=== PATIENT | female | born 1965 | race African-American/Black ===

== ENCOUNTER 2018-06-17 00:07 | Inpatient (IN) | payer MEDICAID ==
[~2018-06-17] VITALS: Ht 167.6 cm; Wt 85.9 kg
[2018-06-17] MEDS ORDERED: NITROGLYCERIN OINT 1GM/INCH UDPKT TD ONE (01:30)
[2018-06-17] MEDS ORDERED: METOPROLOL TARTRATE 50MG TABLET PO ONE (01:30)
[2018-06-17 01:47] LABS: EOSINOPHILS % 3.4 % (0.0-5.0); HEMATOCRIT. 34.4 % (36.0-48.0); HEMOGLOBIN. 11.1 g/dL (12.0-16.0); MEAN CORPUSCULAR HEMOGLOBIN 23.9 pg (28.0-32.0); MEAN CORPUSCULAR VOLUME 73.9 fL (81.0-99.0); MEAN PLATELET VOLUME 7.6 fl (7.4-10.4); MONOCYTES % 10.7 % (2.0-8.0); NEUTROPHILS % 50.9 % (40.0-76.0); PLATELET 363 x1000/uL (130-400); RED BLOOD CELL COUNT 4.65 mill/uL (4.2-5.4); RED CELL DISTRIBUTION WIDTH 18.7 % (11.6-14.6)
[2018-06-17 01:52] LABS: CHLORIDE 109 mEq/L (98-107)
[2018-06-17 01:56] LABS: ETHANOL BLOOD 96 mg/dL
[2018-06-17 08:15] VITALS: BP 163/78
[2018-06-17] MEDS ORDERED: IPRATROPIUM/ALBUTEROL 0.5-3(2.5)MG/3ML NEB INH PRN (08:30)
[2018-06-17] MEDS ORDERED: DOCUSATE SODIUM 100MG CAPSULE PO PRN (08:30)
[2018-06-17] MEDS ORDERED: ONDANSETRON HCL 4MG/2ML INJ IV PRN (08:30)
[2018-06-17] MEDS ORDERED: CLONIDINE 0.1MG TABLET PO PRN (08:30)
[2018-06-17] MEDS ORDERED: DIPHENHYDRAMINE 50MG/ML VIAL IV PRN (08:30)
[2018-06-17] MEDS ORDERED: MAGNESIUM/ALUMINUM HYDROXIDE/SIMETHICONE 30ML UDC PO PRN (08:30)
[2018-06-17] MEDS ORDERED: GUAIFENESIN 200MG/10ML SUGAR FREE UDC PO PRN (08:30)
[2018-06-17] MEDS ORDERED: ACETAMINOPHEN 325MG TABLET PO PRN (08:30)
[2018-06-17] MEDS ORDERED: HYDROCODONE/ACETAMINOPHEN 5/325MG TABLET PO PRN (08:30)
[2018-06-17 09:21] LABS: PHOSPHORUS 2.4 mg/dL (2.5-4.9)
[2018-06-17] MEDS: ENOXAPARIN 40MG/0.4ML SYR SUBCUT SCH (10:33)
[2018-06-17] MEDS: ASPIRIN 81MG EC TABLET PO SCH (10:36)
[2018-06-17 12:42] LABS: HEPATITIS A AB IGM NEGATIVE (NEGATIVE)
[2018-06-17 12:43] LABS: HEPATITIS B SURFACE ANTIGEN NEGATIVE
[2018-06-17 15:54] LABS: CREATINE KINASE 73 IU/L (26-192)
[2018-06-17 15:55] LABS: CREATINE KINASE MB FRACTION < 1.0 ng/mL (0.5-3.6)
[2018-06-17 16:23] LABS: TOTAL IRON BINDING CAPACITY 418 ug/dL (250-450)
[2018-06-17 20:24] VITALS: BP 129/76
[2018-06-17] MEDS: AMLODIPINE 5MG TABLET PO SCH (20:56)
[2018-06-17] MEDS ORDERED: ATORVASTATIN CALCIUM 20MG TABLET PO SCH (21:00)
[2018-06-18 00:10] LABS: CREATINE KINASE 70 IU/L (26-192)
[2018-06-18 00:11] LABS: CREATINE KINASE MB FRACTION < 1.0 ng/mL (0.5-3.6)
[2018-06-18 04:00] VITALS: BP 150/76
[2018-06-18 05:43] LABS: BASOPHILS % 1.4 % (0.0-2.0); EOSINOPHILS % 3.5 % (0.0-5.0); HEMATOCRIT. 34.9 % (36.0-48.0); LYMPHOCYTES % 49.2 % (20.0-50.0); MEAN CORPUSCULAR HEMOGLOBIN 23.8 pg (28.0-32.0); MEAN CORPUSCULAR VOLUME 75.3 fL (81.0-99.0); MEAN PLATELET VOLUME 7.6 fl (7.4-10.4); MONOCYTES % 10.4 % (2.0-8.0); NEUTROPHILS % 35.5 % (40.0-76.0); PLATELET 327 x1000/uL (130-400); RED BLOOD CELL COUNT 4.63 mill/uL (4.2-5.4)
[2018-06-18] MEDS: ASPIRIN 81MG EC TABLET PO SCH (08:24)
[2018-06-18] MEDS: AMLODIPINE 5MG TABLET PO SCH (08:24)
[2018-06-18] MEDS: ENOXAPARIN 40MG/0.4ML SYR SUBCUT SCH (08:25)
[2018-06-18 08:34] LABS: CHLORIDE 105 mEq/L (98-107)
[2018-06-18 08:46] LABS: LDL CHOLESTEROL 106 mg/dL (5-100)
[2018-06-18 08:55] LABS: HDL CHOLESTEROL 53 mg/dL (40-59)
[2018-06-18 12:00] VITALS: BP 157/76
[2018-06-18] MEDS ORDERED: ATOR20TA PO (14:53)
[2018-06-18] MEDS ORDERED: FERR325T23 PO (14:53)
[2018-06-18] MEDS ORDERED: DOCU-138 PO (14:53)
[2018-06-18] MEDS ORDERED: ASPI-1158 PO (14:53)
[2018-06-18] MEDS ORDERED: AMLO5TAB88 PO (14:53)
[2018-06-18 15:59] VITALS: BP 157/76
[2018-06-18] MEDS ORDERED: DOCUSATE SODIUM 100MG CAPSULE PO SCH (17:00)
[2018-06-18] MEDS ORDERED: FERROUS SULFATE 325MG TABLET PO SCH (17:50)
[2018-06-19 04:13] LABS: HIV SCREEN 4G Non Reactive (Non Reactive)
== END 2018-06-18 18:26 | disposition home or self-care (01) | DRG 198 ==
LOC: ER 00:07 → 6WST 04:34 → ENRESERV 07:31
PROVIDERS: ADMIT Internal Medicine; ATTEND Internal Medicine
DX: R07.89 Other chest pain (principal); I25.2 Old myocardial infarction; E83.39 Other disorders of phosphorus metabolism; D25.9 Leiomyoma of uterus, unspecified; D50.9 Iron deficiency anemia, unspecified; F17.200 Nicotine dependence, unspecified, uncomplicated; E78.00 Pure hypercholesterolemia, unspecified; I10 Essential (primary) hypertension; E78.5 Hyperlipidemia, unspecified; Z79.899 Other long term (current) drug therapy
CPT/HCPCS: 36415; 71045; 80061; 80320; 82550; 82553; 82728; 83540; 83550; 83735; 84100; 84443; 84484; 86705; 86709; 86803; 87340; 87389; 93005; 93306; 93970; 97162; 97166; 99285; J1650; G0480

== ENCOUNTER 2018-07-06 09:48 | Emergency (ER) | payer MEDICAID ==
[~2018-07-06] VITALS: Ht 167.6 cm; Wt 92.0 kg
[~2018-07-06 09:48] MED LIST: AMLO5TAB88 PO; ASPI-1158 PO; ATOR20TA PO; DOCU-138 PO; FERR325T23 PO
[2018-07-06] MEDS ORDERED: NITROFURANTOIN 100MG M/M CAPSULE PO ONE (11:15)
[2018-07-06] MEDS ORDERED: PHENAZOPYRIDINE HCL 100MG TABLET PO ONE (11:15)
[2018-07-06 11:42] LABS: CLARITY URINE CLEAR (CLEAR); COLOR URINE YELLOW (YELLOW); KETONES URINE NEGATIVE (NEGATIVE); LEUKOCYTE ESTERASE URINE 1+ (NEGATIVE); NITRITE URINE NEGATIVE (NEGATIVE); OCCULT BLOOD URINE NEGATIVE (NEGATIVE); PROTEIN URINE NEGATIVE (NEGATIVE); SPECIFIC GRAVITY URINE 1.021 (1.005-1.030); UROBILINOGEN URINE 0.2 E.U./dL (0.2-1.0)
[2018-07-06 12:49] VITALS: BP 155/68
== END 2018-07-06 13:26 | disposition home or self-care (01) ==
LOC: ER 09:48
DX: N39.0 Urinary tract infection, site not specified (principal); I10 Essential (primary) hypertension; F17.200 Nicotine dependence, unspecified, uncomplicated; F12.10 Cannabis abuse, uncomplicated; Z79.899 Other long term (current) drug therapy; Z98.51 Tubal ligation status
CPT/HCPCS: 87210; 99283